=== PATIENT | male | born 1955 | race Caucasian/White ===

== ENCOUNTER → 2017-04-24 | Outpatient (CLI) | payer OTHER ==
--- NOTE | 2017-04-24 15:10 | RADRPT ---
EXAM DATE/TIME: 04/24/2017 13:28 [place] COMPARISON: No previous studies available for comparison. INDICATIONS : Abnormal gait and tremors for 1 year. DOSE: 4.5 mCi Ioflupane Iodine-123 in 2.5 ml total volume MEDICATION(S): 130 mg Potasium Iodine PO one hour prior to injection SPECT IMAGIN.5 Hrs. RADIATION DOSE: 30.27 CTDIvol (mGy) MEDICAL HISTORY : Hypertension. SURGICAL HISTORY : Left toe surgery. ENCOUNTER: Initial ACUITY: 1 yr PAIN SCALE: 0/10 LOCATION: Head. TECHNIQUE: SPECT imaging of the brain was performed in sagittal, axial and coronal planes. Attenuation correctio n was performed with computed tomography and both the attenuation correction and non-attenuation keshav ected data sets were reviewed. FINDINGS: There is normal biodistribution of radionuclide with symmetric crescent-shaped areas of activity are in the striatum which appears distinct relative to the surrounding brain tissue. CONCLUSION: 1. Normal dopamine transporter scan Dallas Merlos MD on April 24, 2017 at 15:08 Board Certified Radiologist. This report was verified electronically.
== END ==
LOC: HRAD 08:53
DX: G21.9 Secondary parkinsonism, unspecified (principal)
CPT/HCPCS: 78607; A9584